=== PATIENT | female | born 1985 | race African-American/Black ===

== ENCOUNTER 2017-01-01 09:06 | Emergency (ER) | payer OTHER ==
[2017-01-01] MEDS ORDERED: NS 0.9% 1000 ML* 1,000 ML IV ONE (10:52)
[2017-01-01 10:55] LABS: Hematocrit 38 % (35-47); Hemoglobin 12.2 g/dl (12.0-16.0); Mean Corpuscular HGB Conc 33 g/dl (31-36); Mean Corpuscular Hemoglobin 25 pg (27-31); Mean Corpuscular Volume 78 fL (80-97); Mean Platelet Volume 9 um3 (7.4-10.4); Red Blood Count 4.86 10^6/ul (4.0-5.4); Red Cell Distribution Width 15 % (10.5-15); White Blood Count 8.9 10^3/ul (3.5-10.8)
[2017-01-01 11:02] LABS: Urine Bilirubin Negative (Negative); Urine Glucose Negative (Negative); Urine Nitrite Negative (Negative)
[2017-01-01 11:15] LABS: Albumin 3.6 g/dL (3.2-5.2); BUN/Creatinine Ratio 17.6 (8-20); C Reactive Protein 29.93 mg/L (< 5.00); Calcium 9.1 mg/dL (8.6-10.3); EGFR African American 118.5 (>60); EGFR Non-African American 92.1 (>60); Potassium 3.9 mmol/L (3.5-5.0); Total Bilirubin 0.5 mg/dL (0.2-1.0); Total Protein 6.6 g/dL (6.4-8.9)
--- NOTE | 2017-01-01 11:18 | RAD ---
INDICATION: Abdominal pain COMPARISON: None TECHNIQUE: Erect and supine views of the abdomen are submitted. FINDINGS: Bones: There are no acute bony findings. Soft tissues: The soft tissues appear normal. The psoas margins are sharp. Bowel gas pattern: Normal Calcifications: There are no abnormal calcifications. Other: There is an IUD IMPRESSION: NO ACUTE DIAGNOSTIC FINDINGS.
[2017-01-01] MEDS ORDERED: Magnesium CITRATE* 300 ML BTL PO ONE (11:30)
[2017-01-01] MEDS ORDERED: Sodium Phosphate ADULT ENEMA* 118 ml bottle PR ONE (11:30)
[2017-01-01 12:19] VITALS: BP 112/71
--- NOTE | 2017-01-01 12:39 | ED ---
Annita Mishra Matthew, scribed for Sammy Staton MD on 01/01/17 at 1034 . GI/ HPI - HPI Summary HPI Summary: A 31 y/o female presents to the ED with rectal pain since 12/30/16. The pain is rated 6/10 in severity and described as spasms. She had an endoscopy on 12/29/16 without complications. Then on 12/30/16 she developed a fever with associated fatigue and near syncope all of which have since resolved. Also at 15:00 that day, she had a sharp rectal pain and has continued to have pain since that episode. She hasn't had a BM since 12/29/16. Gas-X did not relieve her symptoms. She took mag citrate without having a BM. PMHx: 2 C-Sections and tonsillectomy. FHx: FHx of [place] - History of Current Complaint Chief Complaint: EDGeneral Time Seen by Provider: 01/01/17 10:14 Stated Complaint: FEVER/RECTUM PAIN Hx Obtained From: Patient Onset/Duration: Started Days Ago, Atraumatic, Still Present Timing: Constant Severity: Moderate Current Severity: Moderate Pain Intensity: 6 Location of Pain: Anal Pain Characteristics: Other: - Spasms Associated Signs and Symptoms: Positive: Rectal Pain - Allergy/Home Medications Allergies/Adverse Reactions: Allergies Allergy/AdvReac Type Severity Reaction Status Date / Time Amoxicillin Allergy Mild ITCH Verified 01/01/17 09:30 Erythromycin Allergy Mild Hives Verified 01/01/17 09:30 Sulfamethoxazole Allergy Mild Hives Verified 01/01/17 09:30 w/Trimethoprim [From Bactrim] TREE NUTS Allergy THROATS Uncoded 01/01/17 09:30 CLOSES, ITCHY, RED SPOTS Home Medications: Home Medications Atenolol TAB* [Tenormin TAB* 25 MG] 25 mg PO DAILY 01/01/17 [History Confirmed 01/01/17] Biotin [Biotin Maximum Strength] 10,000 mcg PO 01/01/17 [History] Calcium Citrate-Vitamin D [Calcium Citrate + D3 200-250 mg-Unit] 2 tab 01/01/17 [History] Ferric Sulfate (Bulk) 325 mg PO DAILY 01/01/17 [History Confirmed 01/01/17] Autkzfnlqgp-Fbeelpohery-Oys C- [Glucosamine Chondroitin] 2 tab PO DAILY [History Confirmed 01/01/17] [place] 3-6-9 Complex 2 tab 01/01/17 [History] Pantoprazole Sodium [Protonix] 40 mg PO 01/01/17 [History] Zinc [Zinc Methionate] 50 mg PO 01/01/17 [History] PMH/Surg Hx/FS Hx/Imm Hx Endocrine/Hematology History: Reports: Hx Thyroid Disease - resolved (6 years old), Hx Anemia - during/after Denies: Hx Diabetes Cardiovascular History: Denies: Hx Hypertension Respiratory History: Reports: Hx Asthma - resolved, Hx Pneumonia - 07/2013 s/p c sect Denies: Hx Chronic Obstructive Pulmonary Disease (COPD) GI History: Denies: Hx Ulcer History: Reports: Other Problems/Disorders - bladder infections Neurological History: Reports: Hx Migraine - resolved - Surgical History Surgery Procedure, Year, and Place: 2008, 2012. TONSILLECTOMY 1998 Hx Anesthesia Reactions: No - Immunization History Date of Tetanus Vaccine: Unk Date of Influenza Vaccine: None Infectious Disease History: Yes Infectious Disease History: Denies: Hx Clostridium Difficile, Hx Hepatitis, Hx Human Immunodeficiency Virus (HIV), Hx of Known/Suspected MRSA, Hx Shingles, Hx Tuberculosis, Traveled Outside the [place] in Last 30 Days - Family History Family History: FHx of [place] - Social History Alcohol Use: Rare Substance Use Type: Reports: None Smoking Status (MU): Never Smoked Tobacco Review of Systems Constitutional: Negative Eyes: Negative ENT: Negative Cardiovascular: Negative Respiratory: Negative Gastrointestinal: Other - rectal pain Genitourinary: Negative Musculoskeletal: Negative Skin: Negative Neurological: Negative Psychological: Normal All Other Systems Reviewed And Are Negative: Yes Physical Exam - Summary Physical Exam Summary: VITAL SIGNS: Reviewed. GENERAL: Patient is an obese female who is lying comfortable in the stretcher. Patient is not in any acute respiratory distress. HEAD AND FACE: Normocephalic and atraumatic. EYES: PERRLA, EOMI x 2, No injected conjunctiva. EARS: Hearing grossly intact. Ear canals and tympanic membranes are WNL. MOUTH: Oropharynx within normal limits. NECK: Supple, trachea is midline, no adenopathy, no JVD. CHEST: Symmetric, no tenderness at palpation LUNGS: Clear to auscultation bilaterally. No wheezing or crackles. CVS: RRR,, S1 and S2 present, no murmurs or gallops appreciated. ABDOMEN: Soft, non-tender. No signs of distention. Positive bowel sounds. No rebound no guarding, and no masses palpated. No abdominal bruit or pulsations. Rectal Exam: Normal sphincter tone, no external or internal hemorrhoids and no fissures noted. EXTREMITIES: FROM in all major joints, no edema, no cyanosis or clubbing. NEURO: Alert and oriented x 3. No acute neurological deficits. Speech is normal. SKIN: Dry and warm Triage Information Reviewed: Yes Vital Signs On Initial Exam: Initial Vitals Temp Pulse Resp BP Pulse Ox 98.1 F 87 18 151/90 98 01/01/17 09:09 01/01/17 09:09 01/01/17 09:09 01/01/17 09:09 01/01/17 09:09 Vital Signs Reviewed: Yes Diagnostics - Vital Signs Vital Signs Temp Pulse Resp BP Pulse Ox 01/01/17 09:09 98.1 F 87 18 151/90 98 - Laboratory Result Diagrams: 01/01/17 10:15 01/01/17 10:15 Lab Statement: Any lab studies that have been ordered have been reviewed, and results considered in the medical decision making process. - Radiology Abd XR Xray Interpretation: No Acute Changes - IMPRESSION: NO ACUTE DIAGNOSTIC FINDINGS. Radiology Interpretation Completed By: Radiologist DOE Course/Dx - Course Assessment/Plan: A 31 y/o female presents to the ED with rectal pain since . The pain is rated 6/10 in severity and described as spasms. She had an endoscopy on 12/29/16 without complications. Then on 12/30/16 she developed a fever with associated fatigue and near syncope all of which have since resolved. Also at 15:00 that day, she had a sharp rectal pain and has continued to have pain since that episode. She hasn't had a BM since 12/29/16. Gas-X did not relieve her symptoms. She took mag citrate without having a BM. PMHx: 2 C- Sections and tonsillectomy. FHx: FHx of CA. Blood work wnl, UA is negative. Abdominal X ray IMPRESSION: NO ACUTE DIAGNOSTIC FINDINGS. It may show stool int ascending and descending colon. No signs of SBO. She was given miralax, lactulose and magnesium citrate as well as fleet enema. I discussed all the findings and test results with the patient. Patient was instructed to return to the emergency room immediately if any of the symptoms return or worsens. They were explained the possibility of an early abdominal pathology which was not detected at this time despite the physical exam and testing. They understand and agree. Abdominal exam before discharge: Soft, NT. No signs of distention. BS present. No rebound no guarding, and no masses palpated. Patient is alert and oriented and hemodynamically stable. Patient is to follow up with primary care physician in the next 2 to 3 days. Patient agree and understands. - Diagnoses Differential Diagnoses - Female: Constipation, Dehydration, Fecal Impaction, Gastroenteritis (Viral) Provider Diagnoses: Rectal pain, Constipation, Abdominal cramping Discharge - Discharge Plan Condition: Stable Disposition: HOME Prescriptions: Polyethylene Glycol 3350* [Miralax*] 17 gm PO DAILY #12 packet Patient Education Materials: Polyethylene Glycol 3350 (By mouth), Constipation (ED), Rectal Pain (ED) Referrals: April Newman MD [Primary Care Provider] - 3 Days Additional Instructions: Please follow-up with your primary care physician. The documentation as recorded by the Annita traore Matthew accurately reflects the service I personally performed and the decisions made by me, Sammy Staton MD.
[2017-01-01] MEDS ORDERED: Polyethylene Glycol 3350* 17 GM PACKET PO SCH (21:00)
== END 2017-01-01 12:19 | disposition home or self-care (01) ==
LOC: ED 09:06
DX: K62.89 Other specified diseases of anus and rectum (principal); K59.00 Constipation, unspecified; R10.9 Unspecified abdominal pain
CPT/HCPCS: 36415; 74020; 80053; 81003; 82150; 82272; 83690; 85025; 86140; 99283; A9270-GY

== ENCOUNTER 2017-12-24 20:33 | Emergency (ER) | payer OTHER ==
[2017-12-24] MEDS ORDERED: Acetaminophen TAB* 325 MG PO ONE (21:13)
[2017-12-24] MEDS ORDERED: Ketorolac INJ* 30 MG/ML 1 ML VIAL IV PUSH ONE (21:13)
[2017-12-24] MEDS ORDERED: NS 0.9% 1000 ML* 2,000 ML IV ONE (21:13)
--- NOTE | 2017-12-24 21:13 | RAD ---
INDICATION: Short of breath COMPARISON: Chest x-ray October 08, 2013 TECHNIQUE: PA and lateral dual-energy views were obtained. FINDINGS: Bones/Soft Tissues: There are no acute bony findings. There is a mild scoliotic deformity Cardiomediastinal: The cardiomediastinal silhouette is normal. Lungs: There are no infiltrates. Pleura: There are no pleural effusions. Other: None IMPRESSION: NO ACTIVE DISEASE.
[2017-12-24 22:10] LABS: Hematocrit 39 % (35-47); Hemoglobin 12.7 g/dl (12.0-16.0); Mean Corpuscular HGB Conc 33 g/dl (31-36); Mean Corpuscular Hemoglobin 26 pg (27-31); Mean Corpuscular Volume 79 fL (80-97); Mean Platelet Volume 9 um3 (7.4-10.4); Platelet Count 257 10^3/ul (150-450); Red Blood Count 4.92 10^6/ul (4.0-5.4); Red Cell Distribution Width 14 % (10.5-15); White Blood Count 8.5 10^3/ul (3.5-10.8)
[2017-12-24 22:16] LABS: INR 0.99 (0.77-1.02)
[2017-12-24 22:22] LABS: EGFR Non-African American 71.2 (>60)
[2017-12-24 22:28] LABS: Urine Appearance Clear; Urine Blood 1+ (Negative); Urine Color Yellow; Urine Ketones Negative (Negative); Urine Protein Negative (Negative); Urine Specific Gravity 1.013 (1.010-1.030); Urine Urobilinogen Negative (Negative)
[2017-12-24 22:48] LABS: Monocytes % 15 % (0-7)
--- NOTE | 2017-12-24 23:04 | ED ---
Erick Mishra Gabriel, scribed for Shayy Eduardo MD on 12/24/17 at 2148 . Influenza-Like Illness - HPI Summary HPI Summary: This patient is a 32 year old F presenting to [facility] with a chief complaint of flu like illness that began a week ago. The patient rates the pain 4/10 in severity. Patient reports body aches, stabbing pain in between her shoulder blades, SOB, chills, fever of 102, and body tremors. Patient was seen yesterday at [place] and got a CXR that showed she did not have PNA so she was given Abx and discharged. Two weeks ago she was given a clinical diagnosis of the flu and took a full course of Tamiflu that was finished on 12-16-17. Since she finished the medication her symptoms have returned. - History of Current Complaint Chief Complaint: EDUpperRespComplaint Time Seen by Provider: 12/24/17 21:02 Hx Obtained From: Patient Onset/Duration: Still Present Severity: Moderate Associated Signs & Symptoms: Fever, F/C, Myalgia - Allergy/Home Medications Allergies/Adverse Reactions: Allergies Allergy/AdvReac Type Severity Reaction Status Date / Time amoxicillin Allergy Rash Verified 12/24/17 20:37 erythromycin base Allergy Rash Verified 12/24/17 20:37 Sulfa (Sulfonamide Allergy Rash Verified 12/24/17 20:37 Antibiotics) sulfamethoxazole Allergy Rash Verified 12/24/17 20:37 [From Bactrim] Tree Nuts Allergy Rash Verified 12/24/17 20:37 trimethoprim [From Bactrim] Allergy Rash Verified 12/24/17 20:37 PMH/Surg Hx/FS Hx/Imm Hx Endocrine/Hematology History: Reports: Hx Thyroid Disease - resolved (6 years old), Hx Anemia - during/after Denies: Hx Diabetes Cardiovascular History: Reports: Other Cardiovascular Problems/Disorders - heart palpitations Denies: Hx Hypertension Respiratory History: Reports: Hx Asthma - resolved, Hx Pneumonia - 07/2013 s/p c sect Denies: Hx Chronic Obstructive Pulmonary Disease (COPD) GI History: Denies: Hx Ulcer History: Reports: Other Problems/Disorders - bladder infections Neurological History: Reports: Hx Migraine - resolved - Surgical History Surgery Procedure, Year, and Place: 2008, 2012. TONSILLECTOMY 1998 Hx Anesthesia Reactions: No - Immunization History Date of Tetanus Vaccine: utd Date of Influenza Vaccine: 07/2017 Infectious Disease History: No Infectious Disease History: Denies: Hx Clostridium Difficile, Hx Hepatitis, Hx Human Immunodeficiency Virus (HIV), Hx of Known/Suspected MRSA, Hx Shingles, Hx Tuberculosis, Traveled Outside the [place] in Last 30 Days - Family History Known Family History: Positive: Other - cancer Family History: FHx of [place] - Social History Alcohol Use: Rare Substance Use Type: Reports: None Smoking Status (MU): Never Smoked Tobacco Review of Systems Positive: Fever, Chills Positive: Shortness Of Breath Positive: Myalgia, Other - body tremors and pain between her shoulde blades All Other Systems Reviewed And Are Negative: Yes Physical Exam - Summary Physical Exam Summary: VITAL SIGNS: Reviewed. GENERAL: Patient is a well-developed and nourished female who is lying comfortable in the stretcher. Patient is not in any acute respiratory distress. HEAD AND FACE: No signs of trauma. No ecchymosis, hematomas or skull depressions. No sinus tenderness. EYES: PERRLA, EOMI x 2, No injected conjunctiva, no nystagmus. EARS: Hearing grossly intact. Ear canals and tympanic membranes are within normal limits. MOUTH: Oropharynx within normal limits. NECK: Supple, trachea is midline, no adenopathy, no JVD, no carotid bruit, no c- spine tenderness, neck with full ROM. CHEST: Symmetric, no tenderness at palpation LUNGS: Clear to auscultation bilaterally. Moderately wheezing CVS: Regular rate and rhythm, S1 and S2 present, no murmurs or gallops appreciated. ABDOMEN: Soft, non-tender. No signs of distention. No rebound no guarding, and no masses palpated. Bowel sounds are normal. EXTREMITIES: FROM in all major joints, no edema, no cyanosis or clubbing. NEURO: Alert and oriented x 3. No acute neurological deficits. Speech is normal and follows commands. SKIN: Dry and warm Triage Information Reviewed: Yes Vital Signs On Initial Exam: Initial Vitals Temp Pulse Resp BP Pulse Ox 102 F 106 22 151/81 98 12/24/17 20:37 12/24/17 20:37 12/24/17 20:37 12/24/17 20:37 12/24/17 20:37 Vital Signs Reviewed: Yes Diagnostics - Vital Signs Vital Signs Temp Pulse Resp BP Pulse Ox 02/23/18 21:09 101.8 F 103 12/24/17 20:37 102 F 106 22 151/81 98 - Laboratory Result Diagrams: 12/24/17 21:45 12/24/17 21:45 Lab Statement: Any lab studies that have been ordered have been reviewed, and results considered in the medical decision making process. - Radiology CXR Radiology Interpretation Completed By: Radiologist - no active disease ED physician has reviewed this radiology report. - EKG 2119 Cardiac Rate: NL EKG Rhythm: Sinus Rhythm - at 98 BPM EKG Interpretation: non specific T wave changes in inferior leads Flu Symptom Course/Dx - Course Assessment/Plan: This patient is a 32 year old F presenting to [facility] with a chief complaint of flu like illness that began a week ago. The patient rates the pain 4/10 in severity. Patient reports body aches, stabbing pain in between her shoulder blades, SOB, chills, fever of 102, and body tremors. Patient was seen yesterday at [place] and got a CXR that showed she did not have PNA so she was given Abx and discharged. Two weeks ago she was given a clinical diagnosis of the flu and took a full course of Tamiflu that was finished on 12-16-17. Since she finished the medication her symptoms have returned. An EKG reveals non specific t wave in inferior leads. CXR reveals, per radiologist, no active disease. Test results with no significant abnormalities. Pt was negative for influenza A and B. In the ED course the patient was given IV fluids and toradol. The patient will be signed out to Dr. Ludwig awaiting CT. - Diagnoses Provider Diagnoses: SOB (shortness of breath), Influenza-like illness Discharge - Discharge Plan Condition: Good Disposition: OTHER Discharge Disposition Comment: signed out to Dr. Ludwig Referrals: April Newman MD [Primary Care Provider] - The documentation as recorded by the Erick traore Gabriel accurately reflects the service I personally performed and the decisions made by me, Shayy Eduardo MD.
[2017-12-24] MEDS ORDERED: Iohexol 350* (CONTRAST) 500 ML MDV IV ONE (23:49)
--- NOTE | 2017-12-25 02:23 | ED ---
Izaiah Mishra Sixian, gallitoed for Prabhakar Ludwig on 12/25/17 at 0121 . Progress - Progress Note Progress Note: This patient was signed out from Dr. Eduardo, pending disposition, awaiting CT CTA chest which reveals heterogeneous left thyroid lobe with complex nodule measuring approximately 2.3 cm, correlate with US. No definite PE but evaluation slightly limited by suboptimal contrast opacification. No aortic dissection or aneurysm. No pneumonia or pleural effusions. Small anterior mediastinal soft tissue, probably thymic. Moderate splenomegaly. The patients condition is stable and will be discharged to home with Dx of upper respiratory infection. The pt is told to follow up with her PCP within 3 days. - Results/Orders Results/Orders: CT CTA chest reveals heterogeneous left thyroid lobe with complex nodule measuring approximately 2.3 cm, correlate with US. No definite PE but evaluation slightly limited by suboptimal contrast opacification. No aortic dissection or aneurysm. No pneumonia or pleural effusions. Small anterior mediastinal soft tissue, probably thymic. Moderate splenomegaly. Course/Dx - Diagnoses Provider Diagnoses: Influenza-like illness, Upper respiratory infection The documentation as recorded by the Izaiah traore Sixian accurately reflects the service I personally performed and the decisions made by Vani perez Emmanuel.
[2017-12-25 02:45] VITALS: BP 115/54
--- NOTE | 2017-12-25 09:31 | RAD ---
Indication: Shortness of breath. Contrast: Administered 88.3 ml of Contrast -- mg/ml. CTA of the chest was performed after IV contrast administration. Coronal and sagittal reconstructed images were obtained. The pulmonary arterial tree is borderline opacified.. No definite filling defect is present to suggest pulmonary The aorta demonstrates no aneurysmal dilatation or dissection. There is no mediastinal or hilar adenopathy noted. There is a large left lobe thyroid nodule. This measures at least 2.7 cm. The trachea and major bronchi appear patent. Lung pablo demonstrates no evidence of alveolar consolidation. The visualized abdominal organs are otherwise unremarkable. IMPRESSION: No evidence of pulmonary embolus is noted. No evidence of aortic dissection is noted. The pulmonary arteries are suboptimally visualized.
== END 2017-12-25 02:43 ==
LOC: ED 20:33
DX: J11.1 Influenza due to unidentified influenza virus with other respiratory manifestations (principal); J06.9 Acute upper respiratory infection, unspecified; R06.02 Shortness of breath
CPT/HCPCS: 36415; 71046; 71275; 80053; 81003; 81015; 83605; 83880; 84443; 84702; 85025; 85610; 85730; 86140; 87040; 87086; 87502; 93005; 96374; 99284; A9270-GY; J1885; Q9967

== ENCOUNTER 2017-12-27 08:09 | Emergency (ER) | payer OTHER ==
[2017-12-27 10:08] LABS: Hematocrit 38 % (35-47); Hemoglobin 12.3 g/dl (12.0-16.0); Mean Corpuscular HGB Conc 32 g/dl (31-36); Mean Corpuscular Hemoglobin 26 pg (27-31); Mean Corpuscular Volume 79 fL (80-97); Mean Platelet Volume 8 um3 (7.4-10.4); Platelet Count 243 10^3/ul (150-450); Red Cell Distribution Width 14 % (10.5-15); White Blood Count 7.9 10^3/ul (3.5-10.8)
--- NOTE | 2017-12-27 10:18 | RAD ---
INDICATION: Left pleuritic chest pain COMPARISON: December 24, 2017 TECHNIQUE: PA and lateral dual-energy views were obtained. FINDINGS: Bones/Soft Tissues: There are no acute bony findings. There is a minor scoliotic deformity. Cardiomediastinal: The cardiomediastinal silhouette is normal. Lungs: There are no infiltrates. Pleura: There are no pleural effusions. Other: None IMPRESSION: NO ACTIVE DISEASE
[2017-12-27 10:26] LABS: EGFR Non-African American 83.7 (>60)
[2017-12-27 11:04] VITALS: BP 142/96
[2017-12-27 11:12] LABS: Monocytes % 4 % (0-7)
[2017-12-27] MEDS ORDERED: Iohexol 350* (CONTRAST) 500 ML MDV IV ONE (11:41)
[2017-12-27] MEDS ORDERED: HYDROcodone/ACETAMIN 5-325 MG* 1 TAB PO ONE (11:57)
[2017-12-27 12:32] LABS: Urine Appearance Cloudy; Urine Blood Negative (Negative); Urine Color Yellow; Urine Ketones Negative (Negative); Urine Protein Negative (Negative); Urine Specific Gravity 1.014 (1.010-1.030); Urine Urobilinogen Negative (Negative)
--- NOTE | 2017-12-27 13:12 | RAD ---
HISTORY: Left pleuritic chest pain, left upper quadrant pain COMPARISONS: CTA of the chest dated December 24, 2017, CT of the abdomen and pelvis dated April 30, 2014 TECHNIQUE: Multiple contiguous axial CT scans were obtained of the chest, abdomen, and pelvis after the administration of intravenous contrast. Coronal and sagittal multiplanar reformations are submitted for review.. Oral contrast was administered. Delayed images were obtained through the abdomen and pelvis. FINDINGS: CHEST NECK AND THYROID: The thyroid is diffusely and heterogeneously enlarged with subclavicular extension. CHEST WALL: There is no lower cervical, axillary, or supraclavicular lymphadenopathy by size criteria. HEART AND PERICARDIUM: The heart is unremarkable. AORTA AND PULMONARY VASCULATURE: The aorta and pulmonary vasculature are normal. MEDIASTINUM: There is no mediastinal lymphadenopathy by size criteria. JUANJO: There is no hilar lymphadenopathy by size criteria. AIRWAY AND ESOPHAGUS: The airway is unremarkable, without endobronchial filling defect. The esophagus is grossly normal. LUNG PARENCHYMA: The lungs are clear. PLEURA: No pleural abnormalities are noted. BONES AND SOFT TISSUES: Mild degeneration is noted. ABDOMEN/PELVIS: LIVER: The liver is diffusely low in attenuation compared to the spleen. There are no focal hepatic parenchymal masses. The liver is enlarged measuring 20 cm in long axis. BILE DUCTS: There is no intrahepatic or extrahepatic biliary dilatation. GALLBLADDER: The gallbladder is normal, without pericholecystic inflammatory change. PANCREAS: The pancreas is normal, without mass or ductal dilatation. SPLEEN: The spleen is homogeneously enlarged measuring up to 18 cm in long axis. UPPER GI TRACT: Evaluation of the gastrointestinal tract is limited by incomplete gastric distention. The upper GI tract is unremarkable. SMALL BOWEL & MESENTERY: The small bowel is normal in contour, course, and caliber. There is no obstruction or dilatation. Multiple small mesenteric lymph nodes are noted. COLON: The colon is normal in contour, course, caliber. There is no pericolonic inflammatory change. ADRENALS: Normal bilaterally. KIDNEYS: The kidneys are normal in shape, size, contour, and axis. There is no hydronephrosis or nephrolithiasis. BLADDER: The bladder is smooth in contour. PELVIC ORGANS: The uterus and adnexa are grossly normal for technique. An IUD is noted AORTA: The aorta is normal. IVC: Unremarkable LYMPH NODES: There is no lymphadenopathy by size criteria. ABDOMINAL WALL: There is no evidence for abdominal wall hernia. BONES AND SOFT TISSUES: The bony skeleton is grossly unremarkable. OTHER: None IMPRESSION: 1. NO PULMONARY ARTERIAL FILLING DEFECT TO SUGGEST PULMONARY EMBOLISM. 2. FATTY INFILTRATION OF THE LIVER. 3. HEPATOSPLENOMEGALY.
[2017-12-27] MEDS ORDERED: Lidocaine 2% VISCOUS* 15 ML UDC PO ONE (14:34)
[2017-12-27] MEDS ORDERED: Al Hydrox/Mg Hydrox/Simet LIQ* 30 ML UDC PO ONE (14:34)
--- NOTE | 2017-12-28 14:29 | ED ---
Ketan Mishra Angela, scribed for Braydon Cardona MD on 12/27/17 at 0939 . Upper Extremity Pain - HPI Summary HPI Summary: This pt is a 32 y/o female presenting to [facility] c/o left sided rib pain radiating up to her left shoulder x2 days. Pt describes her pain as constant throbbing. Denies injury or trauma. Pt states she also felt nauseous today. She reports that when she eats or drinks she feels her abd becomes bloated quickly. Her pain is aggravated with deep breathing. Pt notes she has had normal bowel movements, the last time she had a bowel movement was this morning. This morning , her pain radiated down her left arm. Additionally notes facial swelling and LE swelling. Denies cough. Pt was diagnosed with the flu 2 weeks ago and was given Tamiflu. She was at [facility] on and was given antibiotics, doxycycline, and is still currently on it. Two days ago she was in the ED and had a chest XR, CTA, and labs done, which all resulted negative. Denies smoking or drinking alcohol. Pt is on Merina. PMHx: thyroid disease. She is currently on thyroid medications. Denies hx of PE or DVT. - History of Current Complaint Chief Complaint: EDShouldCrispinj Stated Complaint: SHOULDER AND RIB PAIN Time Seen by Provider: 12/27/17 09:16 Hx Obtained From: Patient Hx Last Menstrual Period: 07/07/12 Mechanism Of Injury: Other - none Onset/Duration: Started Days Ago, Still Present Timing: Constant, Lasting Days Severity Currently: Moderate Pain Location: Shoulder - left, Other: - left sided ribs Character: Throbbing Aggravating Factor(s): Other - eating and drinking Alleviating Factor(s): Nothing Associated Signs & Symptoms: Positive: Nausea. Negative: Fever, Chest Pain, SOB , Back Pain, Vomiting - Allergies/Home Medications Allergies/Adverse Reactions: Allergies Allergy/AdvReac Type Severity Reaction Status Date / Time amoxicillin Allergy Rash Verified 12/24/17 20:37 erythromycin base Allergy Rash Verified 12/24/17 20:37 Sulfa (Sulfonamide Allergy Rash Verified 12/24/17 20:37 Antibiotics) sulfamethoxazole Allergy Rash Verified 12/24/17 20:37 [From Bactrim] Tree Nuts Allergy Anaphylatic Verified 12/27/17 11:37 Shock trimethoprim [From Bactrim] Allergy Rash Verified 12/24/17 20:37 Home Medications: Home Medications Albuterol HFA INHALER* [Ventolin HFA Inhaler*] 2 puff INH Q4H PRN 12/27/17 [ History Confirmed 12/27/17] DOXYcycline CAP(*) [DOXYcycline 100MG CAP(*)] 100 mg PO BID 12/27/17 [History Confirmed 12/27/17] Ferrous Sulfate TAB* 325 mg PO DAILY 12/27/17 [History Confirmed 12/27/17] Fish Oil/Borage/Flax/Om3,6,9 1 [[place] 3-6-9 Complex Softgel] 400 mg PO DAILY [History Confirmed 12/27/17] Methimazole TAB* [Tapazole TAB*] 35 mg PO DAILY 12/27/17 [History Confirmed ] Multivitamins/Minerals TAB* [Theragran/minerals TAB*] 1 tab PO DAILY 12/27/17 [ History Confirmed 12/27/17] Pantoprazole TAB (NF) [Protonix TAB (NF)] 40 mg PO DAILY 12/27/17 [History Confirmed 12/27/17] Zinc 50 mg PO DAILY 12/27/17 [History Confirmed 12/27/17] PMH/Surg Hx/FS Hx/Imm Hx Endocrine/Hematology History: Reports: Hx Thyroid Disease - resolved (6 years old), Hx Anemia - during/after Denies: Hx Diabetes Cardiovascular History: Reports: Other Cardiovascular Problems/Disorders - heart palpitations Denies: Hx Hypertension Respiratory History: Reports: Hx Asthma - resolved, Hx Pneumonia - 07/2013 s/p c sect Denies: Hx Chronic Obstructive Pulmonary Disease (COPD) GI History: Denies: Hx Ulcer History: Reports: Other Problems/Disorders - bladder infections Denies: Hx Dialysis, Hx Renal Disease Neurological History: Reports: Hx Migraine - resolved - Surgical History Surgery Procedure, Year, and Place: 2008, 2012. TONSILLECTOMY 1998 Hx Anesthesia Reactions: No - Immunization History Date of Tetanus Vaccine: utd Date of Influenza Vaccine: 07/2017 Infectious Disease History: No Infectious Disease History: Denies: Hx Clostridium Difficile, Hx Hepatitis, Hx Human Immunodeficiency Virus (HIV), Hx of Known/Suspected MRSA, Hx Shingles, Hx Tuberculosis, Traveled Outside the [place] in Last 30 Days - Family History Known Family History: Positive: Other - cancer Family History: FHx of CA - Social History Alcohol Use: Rare Substance Use Type: Reports: None Smoking Status (MU): Never Smoked Tobacco Review of Systems Negative: Fever, Chills Negative: Erythema Negative: Sore Throat Positive: Chest Pain - left sided rib pain Negative: Shortness Of Breath, Cough Gastrointestinal: Other - abd bloating Positive: Nausea. Negative: Abdominal Pain, Vomiting, Diarrhea, Other - constipation Negative: dysuria, hematuria Musculoskeletal: Other - left shoulder pain, left sided ribs pain Positive: Edema - in face and LE Negative: Rash Neurological: Other - NEG: dizziness All Other Systems Reviewed And Are Negative: Yes Physical Exam - Summary Physical Exam Summary: Constitutional: Well-developed, Well-nourished, Alert. (-) Distressed Skin: Warm, Dry HENT: Normocephalic; Atraumatic Eyes: Conjunctiva normal Neck: Musculoskeletal ROM normal neck. (-) JVD, (-) Stridor, (-) Tracheal deviation Cardio: Rhythm regular, rate normal, Heart sounds normal; Intact distal pulses; The pedal pulses are 2+ and symmetric. Radial pulses are 2+ and symmetric. (-) Murmur Pulmonary/Chest wall: Effort normal. (-) Respiratory distress, (-) Wheezes, (-) Rales Abd: Soft, LUQ tenderness, (-) Distension, (-) Guarding, (-) Rebound. Musculoskeletal: (-) Edema. Left lower lateral ribs tender to palpation. Lymph: (-) Cervical adenopathy Neuro: Alert, Oriented x3 Psych: Mood and affect Normal Triage Information Reviewed: Yes Vital Signs On Initial Exam: Initial Vitals Temp Pulse Resp BP Pulse Ox 97.5 F 96 16 165/80 99 12/27/17 08:18 12/27/17 08:18 12/27/17 08:18 12/27/17 08:18 12/27/17 08:18 Vital Signs Reviewed: Yes Diagnostics - Vital Signs Vital Signs Temp Pulse Resp BP Pulse Ox 12/27/17 08:18 97.5 F 96 16 165/80 99 - Laboratory Result Diagrams: 12/27/17 09:51 12/27/17 09:51 Lab Statement: Any lab studies that have been ordered have been reviewed, and results considered in the medical decision making process. - Radiology Chest XR Xray Interpretation: No Acute Changes - IMPRESSION: No active disease. Dr. Cardona has reviewed this radiology report. Radiology Interpretation Completed By: Radiologist - CT CTA chest/abdomen/pelvis CT Interpretation: No Acute Changes - IMPRESSION: 1. No pulmonary arterial filling defect to suggest pulmonary embolism. 2. Fatty infiltration of the liver. 3. Hepatosplenomegaly. Dr. Cardona has reviewed this radiology report. CT Interpretation Completed By: Radiologist - EKG 09:39 Cardiac Rate: NL EKG Rhythm: Sinus Rhythm - at 81 bpm EKG Interpretation: No STEMI. 14:07 Cardiac Rate: NL EKG Rhythm: Sinus Rhythm - at 83 bpm EKG Interpretation: No STEMI. Re-Evaluation - Re-Evaluation First Eval Re-Evaluation Time: 14:32 Comment: Pt reports she developed LLQ after drinking contrast. Her pain is worse with drinking. Pt could have gastritis, I prescribed her prilosec and naproxen. Course/Dx - Course Course Of Treatment: In the ED course, the pt was given Simms. Labs, chest XR, and EKG were obtained. Chest XR is negative. Labs show D-dimer of 584, AST of 68 , ALT of 76. CTA chest/abd/pelvis was obtained. CTA reveals 1. No pulmonary arterial filling defect to suggest pulmonary embolism. 2. Fatty infiltration of the liver. 3. Hepatosplenomegaly. MO is ruled out. No PE seen on repeat CT scan. Room air saturation is normal with ambulation. There are no signs of pericarditis or MO. On re-eval pt reports she developed LLQ pain after she drank the contrast. Her pain is worse with drinking. She could have gastritis. Pt will be discharged with a prescription for naproxen and prilosec. Pt is advised to follow up with her PCP. - Diagnoses Provider Diagnoses: Chest pain, unspecified Discharge - Discharge Plan Condition: Stable Disposition: HOME Prescriptions: Naproxen TAB* [Naprosyn 375 mg TAB*] 375 mg PO BID #14 tab Omeprazole CAP* [Prilosec CAP* 20 MG] 20 mg PO DAILY #14 cap. Patient Education Materials: Chest Pain (ED) Forms: *Work Release Referrals: April Newman MD [Primary Care Provider] - 2 Days (in 2-3 days.) Additional Instructions: Follow up with your primary care provider in 2-3 days. RETURN TO THE EMERGENCY DEPARTMENT FOR CHANGING OR WORSENING SYMPTOMS. The documentation as recorded by the Ketan traore Angela accurately reflects the service I personally performed and the decisions made by me, Braydon Cardona MD.
== END 2017-12-27 14:51 | disposition home or self-care (01) ==
LOC: ED 08:09
DX: R07.9 Chest pain, unspecified (principal); R11.0 Nausea
CPT/HCPCS: 36415; 71046; 71275; 74177; 80053; 81003; 83605; 83690; 84484; 85025; 85379; 85652; 86141; 93005; 99282; A9270-GY; Q9967

== ENCOUNTER 2018-11-25 09:30 | Emergency (ER) | payer OTHER ==
[2018-11-25 09:43] VITALS: BP 136/73
--- NOTE | 2018-11-25 10:06 | UC ---
Respiratory Complaint HPI - HPI Summary HPI Summary: Patient is a 32-year-old female with a history of asthma presents here with a one-month history of progressively worsening sinus pressure and pain as well as postnasal drip cough and congestion. She denies any fever or chills she denies any myalgias. She denies any chest pain or shortness of breath she denies any wheezing. Her daughters currently being seen here today and is diagnosed with having influenza a. - History of Current Complaint Chief Complaint: UCRespiratory Stated Complaint: SINUS ISSUE Time Seen by Provider: 11/25/18 09:45 Hx Obtained From: Patient Hx Last Menstrual Period: 11/07/18 Onset/Duration: Gradual Onset, Lasting Weeks Timing: Constant Severity Initially: Mild Severity Currently: Mild Pain Intensity: 3 Pain Scale Used: 0-10 Numeric Character: Cough: Nonproductive Associated Signs And Symptoms: Positive: Nasal Congestion, Hoarseness, Sinus Discomfort Related History: Similar Episode/Dx as: - sinusitis - Allergies/Home Medications Allergies/Adverse Reactions: Allergies Allergy/AdvReac Type Severity Reaction Status Date / Time amoxicillin Allergy Rash Verified 11/25/18 09:43 erythromycin base Allergy Rash Verified 11/25/18 09:43 Sulfa (Sulfonamide Allergy Rash Verified 11/25/18 09:43 Antibiotics) sulfamethoxazole Allergy Rash Verified 11/25/18 09:43 [From Bactrim] Tree Nuts Allergy Anaphylatic Verified 11/25/18 09:43 Shock trimethoprim [From Bactrim] Allergy Rash Verified 11/25/18 09:43 PMH/Surg Hx/FS Hx/Imm Hx Previously Healthy: Yes Cardiovascular History: Hypertension Respiratory History: Asthma - Surgical History Surgical History: Yes Surgery Procedure, Year, and Place: 2008, 2012. TONSILLECTOMY 1998 - Family History Known Family History: Positive: Hypertension, Other - cancer Family History: FHx of CA - Social History Alcohol Use: Rare Substance Use Type: None Smoking Status (MU): Never Smoked Tobacco - Immunization History Most Recent Influenza Vaccination: fall 2011 Most Recent Tetanus Shot: 2008 Most Recent Pneumonia Vaccination: none Review of Systems All Other Systems Reviewed And Are Negative: Yes Constitutional: Positive: Negative Skin: Positive: Negative Eyes: Positive: Negative ENT: Positive: Nasal Discharge, Sinus Congestion, Sinus Pain/Tenderness Respiratory: Positive: Cough Cardiovascular: Positive: Negative Gastrointestinal: Positive: Negative Genitourinary: Positive: Negative Motor: Positive: Negative Neurovascular: Positive: Negative Musculoskeletal: Positive: Negative Neurological: Positive: Negative Psychological: Positive: Negative Physical Exam Triage Information Reviewed: Yes Appearance: Well-Appearing, No Pain Distress, Well-Nourished Vital Signs: Initial Vital Signs Temp 98.1 F 11/25/18 09:41 Pulse 90 11/25/18 09:41 Resp 17 11/25/18 09:41 BP 136/73 11/25/18 09:41 Pulse Ox 99 11/25/18 09:41 Vital Signs Reviewed: Yes Eyes: Positive: Conjunctiva Clear ENT: Positive: Hearing grossly normal, Nasal congestion, Nasal drainage, Sinus tenderness, Uvula midline. Negative: Tonsillar swelling, Tonsillar exudate, Trismus, Muffled voice Dental Exam: Normal Neck: Positive: Supple, Nontender Respiratory: Positive: Lungs clear, Normal breath sounds, No respiratory distress, No accessory muscle use Cardiovascular: Positive: RRR, No Murmur Musculoskeletal: Positive: ROM Intact, No Edema Neurological: Positive: Alert Psychological Exam: Normal Skin Exam: Normal UC Diagnostic Evaluation - Laboratory O2 Sat by Pulse Oximetry: 99 - normal/not hypoxic Respiratory Course/Dx - Differential Dx/Diagnosis Provider Diagnosis: Acute sinusitis, Exposure to influenza Discharge - Sign-Out/Discharge Documenting (check all that apply): Patient Departure All imaging exams completed and their final reports reviewed: No Studies - Discharge Plan Condition: Stable Disposition: HOME Prescriptions: DOXYcycline CAP(*) [DOXYcycline 100MG CAP(*)] 100 mg PO BID #14 cap Oseltamivir CAP* [Tamiflu CAP*] 75 mg PO DAILY #10 cap Patient Education Materials: Sinusitis (ED) Forms: *Work Release Referrals: Renny PATRICK,[place] [Primary Care Provider] - - Billing Disposition and Condition Condition: STABLE Disposition: Home
== END 2018-11-25 10:30 | disposition home or self-care (01) ==
LOC: UCEAST 09:30
DX: J01.90 Acute sinusitis, unspecified (principal); Z20.828 Contact with and (suspected) exposure to other viral communicable diseases; Z88.2 Allergy status to sulfonamides; Z88.1 Allergy status to other antibiotic agents; Z91.018 Allergy to other foods
CPT/HCPCS: 99212; G0463

== ENCOUNTER 2019-09-19 14:37 | Emergency (ER) | payer OTHER ==
--- OUTSIDE RECORDS SUMMARY | 2019-09-19 15:39 | XMS REPORT | Summary of Care ---
:1985 Author Organization [facility] Address [address] [place] [address] Care Team Providers Name Role Phone Pravin Lawson Primary Care Provider Reason for Visit Reason Comments Surgical Followup 08/08/18 Encounter Details Date Type Department Care Team Description 09/07/2019 Office Visit [facility], Abdominal pain, left upper quadrant (Primary Dx); [place] BRENDA Aldrich Gastroesophageal reflux disease, esophagitis presence not specified; [address] [facility] [place] [address] S/P laparoscopic sleeve gastrectomy; [facility] [place] [id number] Allergies Active Allergy Reactions Severity Noted Date Comments Kdc:Amoxicillin+Edetic Other 01/25/2014 Itchy Acid+Sodium Benzoate Sulfamethoxazole Hives 01/25/2014 W/Trimethoprim Erythromycin Hives 01/25/2014 Metformin Dermatologic Reaction 01/06/2017 Itching. No rash or hives Nuts Respiratory Reaction 07/12/2018 Tree nuts rash documented as of this encounter (statuses as of 09/07/2019) Medications Medication Sig Dispensed Refills Start Date End Date Status Multiple Take by mouth 0 Active Vitamins-Minerals DAILY. (MULTIVITAL) Oral Tab Iron Combinations Take 325 mg by 0 Active (IRON COMPLEX PO) mouth DAILY. Calcium Take 2 Tabs by 0 Active Citrate-Vitamin D mouth DAILY. (CALCIUM CITRATE + D3 PO) pantoprazole Take 1 Tab by 60 Tab 3 03/08/2018 Active (PROTONIX) 40 MG Oral mouth DAILY. Tab ECIndications: Please take Gastroesophageal Pantoprazole 40mg reflux disease without tablet once daily esophagitis for 6 months sumatriptan (IMITREX) Take 1 Tab by 14 Tab 1 04/04/2018 Active 50 MG Oral Tab mouth EVERY TWO HOURS NEEDED for Migraine. No more than 2 tablets over 24 hour Levonorgestrel by Intrauterine 0 Active (MIRENA, 52 MG, IUT) route. Mirena placed 04/04/18 methimazole (TAPAZOLE) TAKE 2+1/2 TABLETS 75 Tab 0 04/25/2018 Active 10 MG Oral Tab BY MOUTH ONCE DAILY Additional information Patient taking differently: two tablets BID, Reported on 07/12/2018 2:12 PM albuterol HFA Take 2 Puffs by 1 Inhaler 2 06/27/2018 Active (VENTOLIN) 108 (90 inhalation EVERY Base) MCG/ACT FOUR HOURS Inhalation Aero Soln NEEDED (asthma). pneumococcal Inject 0.5 mL 1 vial 0 08/12/2018 Active polysaccharide within a muscle (PNEUMOVAX,PPSV23) 25 ONE TIME. MCG/0.5ML Injection InjectionIndications: S/P bariatric surgery, Need for prophylactic vaccination against Streptococcus pneumoniae (pneumococcus) Cholecalciferol Take 50,000 8 Cap 0 01/20/2019 Active (VITAMIN D3) 98801 Units by mouth units Oral Cap EVERY 7 DAYS. Lansoprazole 30 MG Take 30 mg by 60 Cap 3 09/07/2019 Active Oral CAPSULE DELAYED mouth TWICE RELEASE DAILY. famotidine (PEPCID) 40 Take 1 Tab by 30 Tab 0 09/07/2019 Active MG Oral Tab mouth DAILY. ondansetron (ZOFRAN Take 1 Tab by 60 Tab 3 09/07/2019 Active ODT) 4 MG Oral TABLET mouth DISPERSIBLE DIRECTED. Please take 4mg Zofran tablet every 6 hours as needed for nausea or vomiting. Glucosamine-Chondroit- Take 2 Tabs by 0 09/07/ Discontinued Vit C-Mn (GLUCOSAMINE mouth DAILY. 2019 CHONDR 1500 COMPLX PO) Biotin 5000 MCG Oral Take 10,000 mcg 0 09/07/ Discontinued Tab by mouth DAILY. 2019 Zinc Sulfate (ZINC 15 Take by mouth 0 09/07/ Discontinued PO) DAILY. 2019 B Complex Vitamins Take by mouth. 0 09/07/ Discontinued (VITAMIN-B COMPLEX PO) 2019 Magnesium 100 MG Oral Take by mouth. 0 Discontinued Cap 2019 atenolol (TENORMIN) 25 take 1 tablet by 30 Tab 1 05/02/2018 Discontinued MG Oral Tab mouth once daily 2019 ursodiol (ACTIGALL) Take 1 Cap by 60 Cap 6 07/12/2018 300 MG Oral Cap mouth TWO TIMES 2019 DAILY WITH MEALS. docusate sodium Take 1 Cap by 30 Cap 1 07/12/2018 Discontinued (COLACE) 100 MG Oral mouth TWO TIMES 2019 Cap DAILY NEEDED (constipation). polyethylene glycol Take 17 g by 1 Bottle 2 07/12/2018 Discontinued (MIRALAX) Oral Powder mouth TWICE 2019 DAILY. ondansetron (ZOFRAN Take 1 Tab by 60 Tab 3 07/12/2018 ODT) 4 MG Oral TABLET mouth 2019 (Reorder) DISPERSIBLE DIRECTED. Please take 4mg Zofran tablet every 6 hours as needed for nausea or vomiting. methocarbamol Take 1 Tab by 90 Tab 0 08/09/2018 Discontinued (ROBAXIN) 500 MG Oral mouth THREE 2019 Tab TIMES DAILY. hydrOXYzine HCL Take 1 Tab by 30 Tab 0 08/30/2018 Discontinued (ATARAX) 25 MG Oral mouth TWICE 2019 Tab DAILY. For itching diphenhydrAMINE Take 1 Cap by 56 Cap 0 08/30/2018 Discontinued (PHARBEDRYL) 50 MG mouth EVERY SIX 2019 Oral Cap HOURS NEEDED (itch). Cholecalciferol Take 1 Tab by 30 Tab 0 01/17/2019 Discontinued (VITAMIN D) 2000 units mouth DAILY. 2019 Oral TabIndications: Vitamin D deficiency Hospital, Clinic, or Ordered Dose Route Frequency Start Date End Date Status Other Facility Administered Medication prochlorperazine 10 mg PO Q6 HRS PRN 08/23/2018 Discontinued (COMPAZINE) tablet 10 9 mg documented as of this encounter (statuses as of 09/07/2019) Active Problems Problem Noted Date Dyslipidemia 08/12/2018 Gastroesophageal reflux disease 08/12/2018 Morbid obesity due to excess calories 06/26/2018 Overview: Added automatically from request for surgery [id number] BMI 45.0-49.9, adult 01/25/2014 Knee pain, left 01/25/2014 Asthma H/O gestational diabetes mellitus, not currently Cervical dysplasia Overview: HPV positive Migraine Overview: with aura, period trigger documented as of this encounter (statuses as of 09/07/2019) Immunizations Name Administration Dates Next Due Influenza (IM) Preservative Free 08/09/2018, 12/01/2016 Influenza (IM) W/Pres 08/17/2017 PNEUMOCOCCAL POLYSACCHARIDE VACCINE 08/12/2018 documented as of this encounter Social History Tobacco Use Types Packs/Day Years Used Date Never Smoker Smokeless Tobacco: Never Used Alcohol Use Drinks/Week oz/Week Comments Yes 0 Standard drinks or equivalent 0.0 rare Sex Assigned at Date Recorded Not on file Job Start Date Occupation Industry Not on file Not on file Not on file Travel History Travel Start Travel End No recent travel history available. documented as of this encounter Last Filed Vital Signs Vital Sign Reading Time Taken Comments Blood Pressure 124/76 09/07/2019 8:59 AM EST Pulse 73 09/07/2019 8:59 AM EST Temperature 36.3 09/07/2019 8:59 AM C (97.3 EST F) Respiratory Rate - - Oxygen Saturation 98% 09/07/2019 8:59 AM EST Inhaled Oxygen Concentration - - Weight 121.7 kg (268 lb 3.2 oz) 09/07/2019 8:59 AM EST Height 176 cm (5' 9.3") 09/07/2019 8:59 AM EST Body Mass Index 39.26 09/07/2019 8:59 AM EST documented in this encounter Progress Notes Elinor Ellsworth, BRENDA - 09/07/2019 9:00 AM EST PATIENT: Elinor Wolff : 1985 DATE OF SERVICE: 09/07/2019 CHIEF COMPLAINT: Chief Complaint Patient presents with Surgical Followup 08/08/18 Subjective HISTORY OF PRESENT ILLNESS: Elinor Wolff is a 33-y.o. female s/p sleeve gastrectomy 08/08/18. Last follow up was approximately one year ago. She has been having increasing heartburn and reflux of acid with laying down x4-5 nights a week. Also having heartburn during the day. Protonix BID about 6 months. Tried switching to h2 liza which was worse. Gets burn even with drinking water in the esophgeal area with chronic cough. Normal day: 8:30 2 egg patties with cheese brocolli and peppers/ 10:30 cheese stick, fruit or chex mix/ 12:30 chicken or shrimp with cheese and zuchini noodles/ 3pm cheese or shake/ 6-8 chicken or black mirza patties with veggies waits atleast two hours before laying down . Also LUQ pain that has been going on for about 4 months but worse over last month.Throbbing constant, with nausea. Can't sleep on her left side due to pain. Sometimes pressure helps. Has tried excedrine and tylenol help with pain but make stomach hurt (this is something prior to sleeve gastrectomy). Naproxen no relief. Has not tried heat or ice due to sensitive skin. Was taking zofran for a while which was helping with nausea, but she ran out. Notes a popping sensation in the area sometimes. Bowel movements have had more acrid smelling during this time perdiod. Pain increase with food and water. Denies possibility of -IUD and had recent menstraution Went to urgent care in [place], but no work up done at that time. Past Medical History: Diagnosis Date Cervical dysplasia HPV positive Dyslipidemia 08/12/2018 Essential (primary) hypertension H/O gestational diabetes mellitus, not currently Hyperthyroidism Migraine with aura, period trigger Family History Problem Relation Age of Onset Diabetes Father Arthritis Mother Colon Cancer Maternal Grandmother colon Stroke Maternal Grandmother Cancer Maternal Grandfather pancrease Current Outpatient Medications Medication Sig albuterol HFA (VENTOLIN) 108 (90 Base) MCG/ACT Inhalation Aero Soln Take 2 Puffs by inhalation EVERY FOUR HOURS NEEDED (asthma). Calcium Citrate-Vitamin D (CALCIUM CITRATE + D3 PO) Take 2 Tabs by mouth DAILY. Cholecalciferol (VITAMIN D3) 09172 units Oral Cap Take 50,000 Units by mouth EVERY 7 DAYS. famotidine (PEPCID) 40 MG Oral Tab Take 1 Tab by mouth DAILY. Iron Combinations (IRON COMPLEX PO) Take 325 mg by mouth DAILY. Lansoprazole 30 MG Oral CAPSULE DELAYED RELEASE Take 30 mg by mouth TWICE DAILY. Levonorgestrel (MIRENA, 52 MG, IUT) by Intrauterine route. Mirena placed 04/04/18 methimazole (TAPAZOLE) 10 MG Oral Tab TAKE 2+1/2 TABLETS BY MOUTH ONCE DAILY (Patient taking differently: two tablets BID) Multiple Vitamins-Minerals (MULTIVITAL) Oral Tab Take by mouth DAILY. ondansetron (ZOFRAN ODT) 4 MG Oral TABLET DISPERSIBLE Take 1 Tab by mouth DIRECTED. Pleasetake 4mg Zofran tablet every 6 hours as needed for nausea or vomiting. pantoprazole (PROTONIX) 40 MG Oral Tab EC Take 1 Tab by mouth DAILY. Please take [id number] tablet once daily for 6 months pneumococcal polysaccharide (PNEUMOVAX,PPSV23) 25 MCG/0.5ML Injection Injection Inject 0.5 mLwithin a muscle ONE TIME. sumatriptan (IMITREX) 50 MG Oral Tab Take 1 Tab by mouth EVERY TWO HOURS NEEDED for Migraine. No more than 2 tablets over 24 hour No current facility-administered medications for this visit. Allergies Allergen Reactions Amoxicillin [Kdc:Amoxicillin+Edetic Acid+Sodium Benzoate] Other Itchy Bactrim [Sulfamethoxazole W/Trimethoprim] Hives Erythromycin Hives Metformin Dermatologic Reaction Itching. No rash or hives Nuts Respiratory Reaction Tree nuts rash Social History Socioeconomic History Marital status: Single Spouse name: Not on file Number of children: Not on file Years of education: Not on file Highest education level: Not on file Occupational History Not on file Social Needs Financial resource strain: Not on file Food insecurity: Worry: Not on file Inability: Not on file Transportation needs: Medical: Not on file Non-medical: Not on file Tobacco Use Smoking status: Never Smoker Smokeless tobacco: Never Used Substance and Sexual Activity Alcohol use: Yes Alcohol/week: 0.0 standard drinks Comment: rare Drug use: No Sexual activity: Not Currently Partners: Male control/protection: I.U.D. Lifestyle Physical activity: Days per week: Not on file Minutes per session: Not on file Stress: Not on file Relationships Social connections: Talks on phone: Not on file Gets together: Not on file Attends methodist service: Not on file Active member of club or organization: Not on file Attends meetings of clubs or organizations: Not on file Relationship status: Not on file Intimate partner violence: Fear of current or ex partner: Not on file Emotionally abused: Not on file Physically abused: Not on file Forced sexual activity: Not on file Other Topics Concern Not on file Social History Narrative Patient works at [employer] as an [employer] REVIEW OF SYSTEMS: Review of Systems Constitutional: Negative for chills and fever. Respiratory: Positive for cough. Negative for shortness of breath. Cardiovascular: Negative for palpitations. Gastrointestinal: Positive for abdominal pain, heartburn and nausea. Negative for blood in stool, constipation, diarrhea, melena and vomiting. Objective PHYSICAL EXAM: VITALS: BP 124/76 | Pulse 73 | Temp 97.3 F (36.3 C) | Ht 5' 9.3" ( 1.76 m) | Wt 268 lb 3.2 oz (121.7 kg) | SpO2 98% | BMI 39.26 kg/m Body mass index is 39.26 kg/m. Physical Exam Constitutional: Appearance: Normal appearance. Neck: Musculoskeletal: Normal range of motion. Cardiovascular: Rate and Rhythm: Normal rate and regular rhythm. Pulses: Normal pulses. Heart sounds: Normal heart sounds. Pulmonary: Effort: Pulmonary effort is normal. Breath sounds: Normal breath sounds. Abdominal: General: Abdomen is flat. Bowel sounds are normal. Palpations: Abdomen is soft. Tenderness: There is tenderness (localized to RUQ that radiates aruond ribcage). Skin: General: Skin is warm and dry. Neurological: Mental Status: She is alert. ASSESSMENT / IMPRESSION: ICD-9-CM ICD-10-CM 1. Abdominal pain, left upper quadrant 789.02 R10.12 XR UPPER GI DOUBLE CONTRAST STUDY (STANDARD) W KUB AMYLASE LIPASE 2. Gastroesophageal reflux disease, esophagitis presence not specified 530.81 K21.9 XR UPPER GI DOUBLE CONTRAST STUDY (STANDARD) W KUB 3. S/P laparoscopic sleeve gastrectomy V45.86 Z98.84 4. Nausea 787.02 R11.0 Blood work from 01/17- low prealbumin, low D, elevated platelets Plan She is over due for blood work which she plans to get done today. Reflux/ heartburn EGD, upper Gi x-ray - will see if better symptom relief from lansoprazole - do not take with protonix - elevate HOB, food choices are reasonable LUQ pain - amylase and lipase - blood work - gastritis? - refill of zofran for temporary relief of symptoms Vitamin D deficiency - recheck today Author: Elinor Ellsworth NP 09/07/2019 10:24 documented in this encounter Plan of Treatment Date Type Specialty Care Team Description 09/15/2019 Appointment Radiology 10/06/2019 Hospital Encounter [facility] Munira Scott, Short Procedure MD [address] [place] [address] 10/06/2019 Surgery [facility] Munira Scott, ENDOSCOPY UPPER GI MD [address] [place] [address] 10/06/2019 GI Procedure Gastroenterology Munira Scott MD [address] [place] [address] Name Type Priority Associated Diagnoses Date/Time AMYLASE Lab Routine Abdominal pain, left upper quadrant 09/07/2019 10:02 AM EST LIPASE Lab Routine Abdominal pain, left upper quadrant 09/07/2019 10:02 AM EST Name Type Priority Associated Diagnoses Order Schedule XR UPPER GI DOUBLE Imaging Routine Abdominal pain, left Expected: 2018, CONTRAST STUDY upper quadrant Expires: 09/06/2020 (STANDARD) W KUB Gastroesophageal reflux disease, esophagitis presence not specified AMYLASE Lab Routine Abdominal pain, left Expected: 09/07/2019 upper quadrant (Approximate), Expires: 09/07/2020 LIPASE Lab Routine Abdominal pain, left Expected: 09/07/2019 upper quadrant (Approximate), Expires: 09/07/2020 Health Maintenance Due Date Last Done Comments DEPRESSION SCREENING 05/12/2019 05/12/2018 INFLUENZA VACCINE (#1) 2019 08/09/2018, 08/17/2017, 12/01/2016 PAP SMEAR 09/05/2020 09/05/2017, 06/17/2016 LIPID DISORDER SCREENING 01/15/2024 01/14/2019, 05/21/2018, 11/19/2016 PNEUMOCOCCAL 0-64 YRS Completed 08/12/2018 HPV IMMUNIZATION SERIES Aged Out No longer eligible based on patient's age to complete this topic MENINGOCOCCAL VACCINE IMM Aged Out No longer eligible based on patient's age to complete this topic documented as of this encounter Results Not on filedocumented in this encounter Visit Diagnoses Diagnosis Abdominal pain, left upper quadrant - Primary Gastroesophageal reflux disease, esophagitis presence not specified S/P laparoscopic sleeve gastrectomy Nausea Nausea alone documented in this encounter Insurance Payer Benefit Plan / Subscriber ID Effective Dates Phone Address Type Group [employer] COMMERCIAL AETNA [facility] xxxxxxxxxx 2015-Present [employer] (Home) [phone] [place], [place] (Work) [id number] documented as of this encounter
--- OUTSIDE RECORDS SUMMARY | 2019-09-19 15:39 | XMS REPORT | Summary of Care ---
:1985 Author Organization [facility] Address [address] [place] [address] Care Team Providers Name Role Phone Pravin Lawson Primary Care Provider Encounter Details Date Type Department Care Team Description 09/15/2019 Hospital Encounter [facility] [address] [place] [id number] Allergies Active Allergy Reactions Severity Noted Date Comments Kdc:Amoxicillin+Edetic Other 01/25/2014 Itchy Acid+Sodium Benzoate Sulfamethoxazole Hives 01/25/2014 W/Trimethoprim Erythromycin Hives 01/25/2014 Metformin Dermatologic Reaction 01/06/2017 Itching. No rash or hives Nuts Respiratory Reaction 07/12/2018 Tree nuts rash documented as of this encounter (statuses as of 09/17/2019) Medications Medication Sig Dispensed Refills Start Date [...] Reported on 07/12/2018 2:12 PM albuterol HFA (VENTOLIN) 108 Take 2 Puffs by 1 Inhaler 2 06/27/2018 Active (90 Base) MCG/ACT Inhalation inhalation EVERY FOUR Aero Soln HOURS NEEDED (asthma). pneumococcal polysaccharide Inject 0.5 mL within a 1 vial 0 08/12/2018 Active (PNEUMOVAX,PPSV23) 25 muscle ONE TIME. MCG/0.5ML Injection InjectionIndications: S/P bariatric surgery, Need for prophylactic vaccination against Streptococcus pneumoniae (pneumococcus) Cholecalciferol (VITAMIN D3) Take 50,000 Units by 8 Cap 0 01/20/2019 Active 16988 units Oral Cap mouth EVERY 7 DAYS. famotidine (PEPCID) 40 MG Take 1 Tab by mouth 30 Tab 0 09/07/2019 Active Oral Tab DAILY. Lansoprazole 30 MG Oral Take 30 mg by mouth 30 Cap 3 09/07/2019 Active CAPSULE DELAYED RELEASE DAILY. ondansetron (ZOFRAN ODT) 4 MG Take 1 Tab by mouth 60 Tab 3 09/07/2019 Active Oral TABLET DISPERSIBLE DIRECTED. Please take 4mg Zofran tablet every 6 hours as needed for nausea or vomiting. documented as of this encounter (statuses as of 09/17/2019) Active Problems Problem Noted Date Dyslipidemia 08/12/2018 Gastroesophageal reflux disease 08/12/2018 Morbid obesity due to excess calories 06/26/2018 Overview: Added automatically from request for surgery [id number] BMI 45.0-49.9, adult 01/25/2014 Knee pain, left 01/25/2014 Asthma H/O gestational diabetes mellitus, not currently Cervical dysplasia Overview: HPV positive Migraine Overview: with aura, period trigger documented as of this encounter (statuses as of 09/17/2019) Immunizations Name Administration Dates Next Due Influenza [...] of this encounter Last Filed Vital Signs Not on filedocumented in this encounter Plan of Treatment Date Type Specialty Care Team Description 10/06/[address] [facility] Munira Scott, Short Procedure MD [address] [place] [address] 10/06/[address] [facility] Munira Scott, ENDOSCOPY UPPER GI MD [address] [place] [address] 10/06/2019 GI Procedure Gastroenterology Munira Scott MD [address] [place] [address] Name Type Priority Associated Diagnoses Date/Time XR UPPER GI DOUBLE Imaging Routine Abdominal pain, left 09/15/2019 11:43 AM CONTRAST STUDY upper quadrant EST (STANDARD) W KUB Gastroesophageal reflux disease, esophagitis presence not specified Name Type Priority Associated Diagnoses Order Schedule XR UPPER GI DOUBLE Imaging Routine Abdominal pain, left 1 Occurrences starting CONTRAST STUDY upper quadrant 09/15/2019 until (STANDARD) W KUB Gastroesophageal reflux 09/15/2019 disease, esophagitis presence not specified Health Maintenance Due Date Last Done Comments DEPRESSION SCREENING 05/12/2019 05/12/2018 INFLUENZA VACCINE (#1) 2019 08/09/2018, 08/17/2017, 12/01/2016 PAP SMEAR 09/05/2020 09/05/2017, 06/17/2016 LIPID DISORDER SCREENING 09/07/2024 09/07/2019, 01/14/2019, 05/21/2018, Additional history exists PNEUMOCOCCAL 0-64 YRS Completed 08/12/2018 HPV IMMUNIZATION SERIES Aged Out No longer eligible based on patient's age to complete this topic MENINGOCOCCAL VACCINE IMM Aged Out No longer eligible based on patient's age to complete this topic documented as of this encounter Results Not on filedocumented in this encounter Visit Diagnoses Diagnosis Abdominal pain, left upper quadrant Gastroesophageal reflux disease, esophagitis presence not specified documented in this encounter Insurance Payer Benefit Plan / Subscriber ID Effective Dates Phone Address Type Group [employer] COMMERCIAL A[employer]NA [facility] xxxxxxxxxx 2015-Present [employer] (Home) [phone] [place], [place] (Work) [id number] documented as of this encounter
--- NOTE | 2019-09-19 16:50 | ED ---
Abdominal Pain/Female - HPI Summary HPI Summary: This patient is a 33 year old F presenting to ED with a chief complaint of left abdominal pain under the ribcage since 6 months. At the time, the pain was intermittent. However, 4 months ago, the pain became constant. Three months ago , she developed nausea, so she went to see a doctor a couple of weeks ago and had a barium swallow work up. Patient was diagnosed with hiatal hernia and reflux. She is scheduled for an endoscopy for 10/06, but since 09/15/19, the pain has become worse with eating and swallowing, so she decided to come in to [facility] today. The pain has since become a throbbing/twisting sensation and has radiated into the back on the left side. Patient reports having bariatric surgery in mid-2018. Patient takes Zofran daily and she feels like it is helping less and less. Patient took pantoprazole, which did not work, so she was switched to lansoprazole and Pepcid. Patient has not recently changed her diet and she does not drink coffee or eat spicy/acidic food. The patient rates the pain 5/10 in severity. Symptoms aggravated by eating. Symptoms alleviated by nothing. Patient reports chills, nausea. Patient denies fever, diarrhea, hematuria, dysuria. Medications reviewed. Allergies noted. - History of Current Complaint Chief Complaint: EDFlankPain Stated Complaint: LT SIDE ABD PAIN PER PT Time Seen by Provider: 09/19/19 16:30 Hx Obtained From: Patient Onset/Duration: Gradual Onset, Lasting Weeks - Since 6 months ago, Still Present , Worse Since Timing: Constant Severity Initially: Mild Severity Currently: Moderate Pain Intensity: 5 Pain Scale Used: 0-10 Numeric Location: Discrete At: LUQ Radiates: Yes Radiates to: Back Aggravating Factor(s): Food Alleviating Factor(s): Nothing Associated Signs and Symptoms: Positive: Back Pain, Nausea. Negative: Fever, Urinary Symptoms, Diarrhea Allergies/Adverse Reactions: Allergies Allergy/AdvReac Type Severity Reaction Status Date / Time amoxicillin Allergy Rash Verified 09/19/19 15:33 erythromycin base Allergy Rash Verified 09/19/19 15:33 Sulfa (Sulfonamide Allergy Rash Verified 09/19/19 15:33 Antibiotics) sulfamethoxazole Allergy Rash Verified 09/19/19 15:33 [From Bactrim] Tree Nuts Allergy Anaphylatic Verified 09/19/19 15:33 Shock trimethoprim [From Bactrim] Allergy Rash Verified 09/19/19 15:33 PMH/Surg Hx/FS Hx/Imm Hx Endocrine/Hematology History: Reports: Hx Thyroid Disease - resolved (6 years old), Hx Anemia - during/after Denies: Hx Diabetes Cardiovascular History: Reports: Other Cardiovascular Problems/Disorders - heart palpitations Denies: Hx Hypertension Respiratory History: Reports: Hx Asthma - resolved, Hx Pneumonia - 07/2013 s/p c sect Denies: Hx Chronic Obstructive Pulmonary Disease (COPD) GI History: Denies: Hx Ulcer History: Reports: Other Problems/Disorders - bladder infections Denies: Hx Dialysis, Hx Renal Disease Neurological History: Reports: Hx Migraine - resolved - Surgical History Surgery Procedure, Year, and Place: 2008, 2012. TONSILLECTOMY 1998 Hx Anesthesia Reactions: No - Immunization History Date of Tetanus Vaccine: utd Date of Influenza Vaccine: 07/2017 Infectious Disease History: No Infectious Disease History: Denies: Hx Clostridium Difficile, Hx Hepatitis, Hx Human Immunodeficiency Virus (HIV), Hx of Known/Suspected MRSA, Hx Shingles, Hx Tuberculosis, Traveled Outside the [place] in Last 30 Days - Family History Known Family History: Positive: Hypertension, Other - cancer Family History: FHx of CA - Social History Alcohol Use: Rare Hx Substance Use: No Substance Use Type: Reports: None Hx Tobacco Use: No Smoking Status (MU): Never Smoked Tobacco Review of Systems Positive: Chills. Negative: Fever Positive: Abdominal Pain, Nausea. Negative: Diarrhea Negative: dysuria, hematuria All Other Systems Reviewed And Are Negative: Yes Physical Exam - Summary Physical Exam Summary: Constitutional: Well-developed, Well-nourished, Alert. (-) Distressed Skin: Warm, Dry HENT: Normocephalic; Atraumatic Eyes: Conjunctiva normal Neck: Musculoskeletal ROM normal neck. (-) JVD, (-) Stridor, (-) Tracheal deviation Cardio: Rhythm regular, rate normal, Heart sounds normal; Intact distal pulses; Radial pulses are 2+ and symmetric. (-) Murmur Pulmonary/Chest wall: Effort normal. (-) Respiratory distress, (-) Wheezes, (-) Rales Abd: epigastric and LUQ tenderness, no rebound or guarding Musculoskeletal: (-) Edema Lymph: (-) Cervical adenopathy Neuro: Alert, Oriented x3 Psych: Mood and affect Normal Triage Information Reviewed: Yes Vital Signs On Initial Exam: Initial Vitals Temp Pulse Resp BP Pulse Ox 98.9 F 94 20 176/93 99 09/19/19 15:28 09/19/19 15:28 09/19/19 15:28 09/19/19 15:28 09/19/19 15:28 Vital Signs Reviewed: Yes Procedures - Sedation Patient Received Moderate/Deep Sedation with Procedure: No Diagnostics - Vital Signs Vital Signs Temp Pulse Resp BP Pulse Ox 09/19/19 15:28 98.9 F 94 20 176/93 99 - Laboratory Result Diagrams: 09/19/19 16:53 09/19/19 16:53 Lab Statement: Any lab studies that have been ordered have been reviewed, and results considered in the medical decision making process. Re-Evaluation - Re-Evaluation First Eval Re-Evaluation Time: 17:42 Comment: Discussed results with patient. Patient will be discharged home with dx of LUQ pain and hiatal hernia. Patient understands and agrees with this plan. Abdominal Pain Fem Course/Dx - Course Course Of Treatment: Patient is here with left upper quadrant pain that she's had for months. Patient's been evaluated at [facility] and was recently diagnosed with a hiatal hernia on Wednesday. Patient's having acid reflux symptoms and is currently on pantoprazole and Pepcid. Patient had a benign abdominal exam overall with only mild left upper quadrant and epigastric tenderness. Patient had blood work performed which was grossly unremarkable. Patient had negative UA. Patient was given viscous lidocaine with improvement in her symptoms. The patient did not need any emergent imaging at this time. Patient was discharged with PCP follow-up. - Diagnoses Provider Diagnoses: LUQ pain, Hiatal hernia Discharge ED - Sign-Out/Discharge Documenting (check all that apply): Patient Departure - Discharge - Discharge Plan Condition: Stable Disposition: HOME Prescriptions: Metoclopramide TAB* [Reglan TAB*] 5 mg PO Q6H PRN #20 tab PRN Reason: Vomiting Patient Education Materials: Hiatal Hernia (ED), Abdominal Pain (ED) Referrals: Renny PATRICK,[place] [Primary Care Provider] - 3 Days Additional Instructions: Try your new nausea medicine as prescribed, but do not take it with Zofran. Come back if you have severe abdominal pain, inability to poop, vomiting that is uncontrolled with medicine. Follow up with your primary care provider in 1-3 days. - Billing Disposition and Condition Condition: STABLE Disposition: Home - Attestation Statements Document Initiated by Ally: Yes Documenting Scribe: Michael Garica Provider For Whom Ally is Documenting (Include Credential): Erasto Kennedy MD Scribe Attestation: I, Michael Garcia, scribed for Erasto Kennedy MD on 09/19/19 at 1746. Scribe Documentation Reviewed: Yes Provider Attestation: The documentation as recorded by the Michael traore accurately reflects the service I personally performed and the decisions made by me, Erasto Kennedy MD Status of Scribe Document: Viewed
[2019-09-19 17:04] LABS: ABS Lymphocytes 1.6 10^3/ul (1.0-4.8); ABS Monocytes 0.5 10^3/ul (0-0.8); Eosinophil % 0.7 %; Hematocrit 38 % (35-47); Hemoglobin 12.4 g/dL (12.0-16.0); Lymphocyte % 22.4 %; Mean Corpuscular HGB Conc 33 g/dL (31-36); Mean Corpuscular Hemoglobin 27 pg (27-31); Mean Corpuscular Volume 81 fL (80-97); Mean Platelet Volume 8.9 fL (7.4-10.4); Nucleated Red Blood Cells % 0.1; Platelet Count 333 10^3/uL (150-450); Red Blood Count 4.65 10^6 /uL (3.70-4.87); Red Cell Distribution Width 13 % (10-15); White Blood Count 7.2 10^3/uL (3.5-10.8)
[2019-09-19] MEDS ORDERED: Lidocaine 2% VISCOUS* 15 ML UDC PO ONE (17:18)
[2019-09-19 17:26] LABS: Urine Appearance Clear; Urine Bilirubin Negative (Negative); Urine Blood Negative (Negative); Urine Color Yellow; Urine Glucose Negative (Negative); Urine Ketones Negative (Negative); Urine Nitrite Negative (Negative); Urine Protein Negative (Negative); Urine Specific Gravity 1.013 (1.010-1.030); Urine Urobilinogen Negative (Negative)
[2019-09-19 17:26] LABS: Albumin/Globulin Ratio 1.5 (1-3); BUN/Creatinine Ratio 23.1 (8-20); Calcium 9.4 mg/dL (8.6-10.3); EGFR African American 103.6 (>60); EGFR Non-African American 85.6 (>60); Globulin 2.7 g/dL (2-4); Potassium 3.9 mmol/L (3.5-5.0); Total Bilirubin 0.4 mg/dL (0.2-1.0); Total Protein 6.7 g/dL (6.4-8.9)
[2019-09-19 17:31] LABS: HCG Pregnancy 0.78 mIU/mL
[2019-09-19 17:59] VITALS: BP 172/99
== END 2019-09-19 18:00 | disposition home or self-care (01) ==
LOC: ED 14:37
DX: R10.12 Left upper quadrant pain (principal); K44.9 Diaphragmatic hernia without obstruction or gangrene; R68.83 Chills (without fever); R11.0 Nausea; Z88.0 Allergy status to penicillin; Z88.2 Allergy status to sulfonamides; Z88.1 Allergy status to other antibiotic agents; Z91.018 Allergy to other foods
CPT/HCPCS: 36415; 80053; 81003; 83690; 84702; 85025; 99282